=== PATIENT | male | born 1945 | race Caucasian/White ===

== ENCOUNTER 2024-10-18 13:10 | Emergency (ER) | payer MEDICARE ==
[~2024-10-18] VITALS: Ht 172.7 cm; Wt 100.3 kg
[2024-10-18 13:12] VITALS: TEMP 97.5
[2024-10-18 14:08] LABS: VENOUS BASE EXCESS -1.9 (-2.0-2.0); VENOUS HCO3 23.0 MMOL/L (23.0-27.0); VENOUS O2 SATURATION 94.7 % (60.0-80.0); VENOUS PARTIAL PRESSURE CO2 39.6 mmHg (38.0-50.0); VENOUS PARTIAL PRESSURE O2 75.3 mmHg (30.0-50.0); VENOUS PH 7.381 UNITS (7.330-7.430); VENOUS STANDARD HCO3 22.8 MMOL/L; VENOUS TOTAL CO2 24.2 MMOL/L (24.0-28.0)
[2024-10-18 14:13] LABS: BASO # 0.1 10^3/uL (0.0-0.2); BASO % 1.1 % (0.0-1.0); EOS # 0.2 10^3/uL (0.0-0.5); EOS % 4.1 % (0.0-3.0); LYMPH # 1.3 10^3/uL (1.5-5.0); LYMPH % 24.0 % (24.0-44.0); MONO # 0.6 10^3/uL (0.0-0.8); MONO % 11.2 % (2.0-8.0); NEUTROPHILS # 3.3 10^3/uL (1.5-8.5); NEUTROPHILS % 59.2 % (36.0-66.0); PLATELET COUNT, AUTOMATED 177 10^3/uL (150-450)
[2024-10-18 14:41] LABS: CK-MB VALUE MASS 1.1 NG/ML (<3.6)
[2024-10-18 14:43] LABS: ALT/SGPT 36.0 U/L (7.0-40); AST/SGOT 38.0 U/L (<34); CALCIUM LEVEL 8.8 MG/DL (8.3-10.6); CARBON DIOXIDE LEVEL 24.0 MMOL/L (20-31); CHLORIDE LEVEL 109.0 MMOL/L (98-107); CREATININE FOR GFR 1.19 MG/DL (0.70-1.30); GLOMERULAR FILTRATION RATE 61.8 (>35); POTASSIUM SERUM 4.6 MMOL/L (3.5-5.1); SODIUM LEVEL 145.0 MMOL/L (136-145)
[2024-10-18 14:54] LABS: CPK CREATINE PHOSPHOKINASE 96.0 U/L (46-171); MB/CK RELATIVE INDEX 1.14 (< OR =4)
[2024-10-18] MEDS ORDERED: ISOVUE-370 76% 100 ML VIAL As Ordered ONE (15:19)
[2024-10-18 15:44] LABS: CK-MB VALUE MASS < 1.0 NG/ML (<3.6)
[2024-10-18 15:52] LABS: CPK CREATINE PHOSPHOKINASE 83 U/L (46-171)
[2024-10-18 17:32] VITALS: BP 195/92
[2024-10-18] MEDS: FUROSEMIDE 20 MG/2 ML VIAL IV ONE (17:32)
[2024-10-18 17:35] VITALS: BP 195/92; O2SAT 96
== END 2024-10-18 17:54 | disposition left against medical advice (07) ==
LOC: M ED 13:10
DX: I11.0 Hypertensive heart disease with heart failure (principal); R79.89 Other specified abnormal findings of blood chemistry; I48.91 Unspecified atrial fibrillation; E78.5 Hyperlipidemia, unspecified; N40.0 Benign prostatic hyperplasia without lower urinary tract symptoms; Z95.1 Presence of aortocoronary bypass graft; I77.810 Thoracic aortic ectasia; R09.89 Other specified symptoms and signs involving the circulatory and respiratory systems; R91.8 Other nonspecific abnormal finding of lung field; K80.20 Calculus of gallbladder without cholecystitis without obstruction; Z88.5 Allergy status to narcotic agent
CPT/HCPCS: 71045; 71275; 80048; 80076; 82550; 82553; 82803; 83880; 84484; 85025; 93005; 93041; 94760; 96374; 99285; J1938; Q9967